=== PATIENT | male | born 1960 | race Caucasian/White ===

== ENCOUNTER 2020-05-01 22:09 | Emergency (ER) | payer BC | END 2020-05-01 23:00 | disposition home or self-care (01) | LOC: ERS 22:09 | DX: H53.9 Unspecified visual disturbance (principal); F32.9 Major depressive disorder, single episode, unspecified; I25.2 Old myocardial infarction; E78.5 Hyperlipidemia, unspecified; E78.00 Pure hypercholesterolemia, unspecified; E78.1 Pure hyperglyceridemia; Z79.82 Long term (current) use of aspirin; Z79.899 Other long term (current) drug therapy | CPT/HCPCS: 99283 ==

== ENCOUNTER 2020-10-22 10:19 | Inpatient (IN) | payer BC ==
[2020-10-22] MEDS ORDERED: CEFAZOLIN 1 GM VIAL ONE ×2 (10:37→11:47)
[2020-10-22] MEDS ORDERED: Boostrix 0.5 ML (Tdap) VIAL ONE (10:37)
--- NOTE | 2020-10-22 10:53 | RAD ---
EXAM: 3 views of the left hand COMPARISON: None HISTORY: Hand pain after crushing with a log splitter FINDINGS: 3 views of the hand shows no evidence of acute fracture or dislocation. No degenerative eyal nges are seen. There appears to be a laceration along the ulnar aspect of the hand. Adjacent soft tissue swelling is present. IMPRESSION: No evidence of acute osseous abnormality.
[2020-10-22] MEDS ORDERED: Bacitracin 1 PK ONE (12:01)
--- NOTE | 2020-10-22 12:04 | RAD ---
EXAM: Single view of the chest HISTORY: Chest pain COMPARISON: None FINDINGS: Single view of the chest shows a normal sized cardiomediastinal silhouette. Atheroscleroti c calcifications are seen in the aorta. There is no evidence of consolidation, mass, or pleural effusion. Degenerative changes are seen in the spine. IMPRESSION: No evidence of acute cardiopulmonary disease
[2020-10-22 12:18] LABS: #Basophils 0.1 thou/uL (0.0-0.2); #Eosinphils 0.4 thou/uL (0.0-0.7); #Lymphocytes 1.1 thou/uL (1.20-3.40); #Monocytes 0.5 thou/uL (0.11-0.59); %Basophils 1.3 % (0.0-1.0); %Eosinophils 5.9 % (0.0-10.0); %Lymphocytes 17.6 % (21.0-51.0); %Monocytes 8.5 % (0.0-10.0); %Neutrophils 66.7 % (42.0-75.0); Hemoglobin 15.3 g/dL (14.0-18.0); Mean Corpuscular HGB CONC 34.2 g/dL (32.0-36.0); Mean Corpuscular Volume 93.6 fL (78.0-98.0); Mean Platelet Volume 8.4 fL (7.4-10.4); Platelet Count 199 thou/uL (130-400); RBC Distribution Width 11.9 % (11.5-14.5); Red Blood Cell (RBC) Count 4.78 mill/uL (4.70-6.10)
[2020-10-22 12:44] LABS: ALT (SGPT) 27 U/L (8-55); AST (SGOT) 29 U/L (5-34); Albumin 4.1 g/dL (3.5-5.0); Alkaline Phosphatase 69 U/L (40-110); Anion Gap 13 mmol/L (10-20); BUN (Urea Nitrogen) 18 mg/dL (8.4-25.7); Bilirubin, Total 0.6 mg/dL (0.2-1.2); Calc. Creatinine Clearance 0 mL/min (70-130); Calcium 8.8 mg/dL (7.8-10.44); Carbon Dioxide 22 mmol/L (22-29); Chloride 108 mmol/L (98-107); Estimated GFR-MDRD 90; Globulin 2.7 g/dL (2.4-3.5); Glucose 143 mg/dL (70-105); Protein, Total 6.8 g/dL (6.0-8.3); Sodium 139 mmol/L (136-145)
[2020-10-22] MEDS ORDERED: Gentamicin 80 MG/2 ML VIAL ONE (12:52)
[2020-10-22] MEDS ORDERED: Acetaminophen 325 MG TAB ONE (14:51)
[2020-10-22 15:15] LABS: SARS-CoV-2 NAA Rapid Test Not Detected (NotDetected)
--- NOTE | 2020-10-22 17:06 | HP ---
REQUESTING PHYSICIAN: Rudy Fairchild MD ATTENDING SURGEON: Hunter Franco DO CONSULTATIONS: Hand Surgery, Negro Rosas MD. HISTORY OF PRESENT ILLNESS: The patient is a 60-year-old man who was working with a wood splitter when his hand got caught between the splitter and a piece of wood, causing a laceration to his left hypothenar eminence. He brought himself to the emergency department where he underwent evaluation and examination and was noted to have laceration to the thenar eminence with decreased sensation on the ulnar side of his small finger, at which time we were asked to evaluate the patient for admission and obtain a hand surgery consultation. The patient was given a tetanus update and IV antibiotics. The patient denies any other injuries. ALLERGIES: NONE. CURRENT MEDICATIONS: 1. Baby aspirin. 2. Ativan. 3. Famotidine. 4. Metoprolol. 5. Mirtazapine. 6. . PAST MEDICAL HISTORY: 1. Coronary artery disease. 2. Hypertension. 3. Hyperlipidemia. 4. Anxiety. 5. Depression. PAST SURGICAL HISTORY: 1. Cardiac stent placement. 2. Right foot surgery. 3. Anal sphincterotomy. SOCIAL HISTORY: The patient drinks occasionally during the week, denies daily alcohol. He denies tobacco or drug use. 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 REVIEW OF SYSTEMS: A 10-point review of systems is negative except as otherwise stated. PHYSICAL EXAMINATION: VITAL SIGNS: Blood pressure 131/74, heart rate 62, respirations 18, oxygen saturation 99% on room air, and temperature is 98.0. GENERAL: The patient is resting comfortably in bed. He is awake, alert, and oriented x3. Patricia Coma Scale is 15. HEENT: Head is normocephalic and atraumatic. Eyes, extraocular motion intact. PERRLA bilaterally. Ears are atraumatic without discharge. Nose is atraumatic without discharge. Oropharynx is clear. NECK: Nontender with trachea is midline. No JVD. CHEST: Clear to auscultation with good inspiratory and expiratory effort. HEART: Regular rate and rhythm. ABDOMEN: Soft, flat, nontender with active bowel sounds. PELVIS: Stable. EXTREMITIES: Neurovascularly intact x4 with the exception of some decreased sensation to his ulnar aspect of his left small finger. He does have a laceration on his thenar eminence, jagged in nature, approximately 3.5 cm on the palmar surface. LABORATORY FINDINGS: White blood cell count 6.0, hemoglobin 15.3, hematocrit 44.8, and platelets 199. Sodium 139, potassium 4.0, chloride 108, CO2 of 22, BUN 18, creatinine 0.87, and glucose 143. LFTs are unremarkable. COVID is negative. RADIOGRAPHIC REPORTS: AP chest x-ray shows no evidence of acute cardiopulmonary disease. Views of the left hand show no evidence of acute osseous abnormality. ASSESSMENT AND PLAN: 1. Status post crush injury to left nondominant hand. 2. Laceration to left hypothenar eminence with concern for nerve damage to left small finger. Plan will be to admit the patient to surgical floor. We will keep him n.p.o. until evaluated by Dr. Rosas who on initial contact plans on taking him to the operating room. The patient will have pulmonary toilet, gastritis, mechanical VTE prophylaxis. The evaluation, examination, laboratory, and radiographic findings were discussed with Dr. Franco prior to this dictation. Job ID: [id number]
[2020-10-22] MEDS ORDERED: CEFAZOLIN 2 GM in Premix Bag 1 BAG IVPB SCH (19:15)
[2020-10-22] MEDS ORDERED: Bupivacaine PF 0.5% 30 ML VIAL ONE (20:55)
[2020-10-22] MEDS ORDERED: Thrombin 5000 UNITS/5 ML VIAL ONE (20:55)
[2020-10-22] MEDS ORDERED: Sodium Chloride 0.9% 10 ML ONE (20:55)
[2020-10-22] MEDS ORDERED: Bacitracin Zinc Ointment 30 gm TUBE ONE (20:55)
[2020-10-22] MEDS ORDERED: Sodium Chloride 0.9% 20 ML ONE (21:10)
[2020-10-22] MEDS ORDERED: Fentanyl 100 MCG/2 ML VIAL ONE (21:23)
[2020-10-22] MEDS ORDERED: Lidocaine 1% PF 5 ML VIAL ONE (21:58)
[2020-10-22] MEDS ORDERED: PROPOFOL 200 MG/20 ML VIAL ONE (21:58)
[2020-10-22] MEDS ORDERED: Dexamethasone 20 MG/5 ML VIAL ONE (21:58)
[2020-10-22] MEDS ORDERED: Ondansetron PF 4 MG/2 ML Vial ONE (21:58)
[2020-10-22] MEDS ORDERED: Acetaminophen/Codeine 30-300mg Tablet PO PRN (22:10)
[2020-10-22] MEDS ORDERED: HYDROcodone/Acetaminophen 5/325 mg Tablet PO PRN (22:10)
[2020-10-22] MEDS ORDERED: traMADol HCl 50 MG TAB PO PRN (22:10)
[2020-10-22] MEDS ORDERED: TETANUS AND DIPHTHERIA TOX/PF 0.5 ML DISP.SYRIN IM SCH (22:15)
[2020-10-22] MEDS ORDERED: Pharmacy to Dose : VANC/ABX'S IVPB PRN (22:15)
[2020-10-22] MEDS ORDERED: Ketorolac Tromethamine 30 MG/ML VIAL IVP PRN (22:18)
[2020-10-22] MEDS ORDERED: Meperidine HCl/PF 25 MG/ML VIAL IM PRN (22:18)
[2020-10-22] MEDS ORDERED: Meperidine HCl/PF 25 MG/ML VIAL SLOW IVP PRN (22:22)
[2020-10-22] MEDS ORDERED: Ondansetron HCl/PF 4 MG/2 ML Vial IVP PRN (22:22)
[2020-10-22] MEDS ORDERED: Promethazine HCl 25 MG/ML VIAL IM PRN (22:22)
[2020-10-22] MEDS ORDERED: Promethazine HCl 25 MG/ML VIAL SLOW IVP PRN (22:22)
[2020-10-23] MEDS ORDERED: Fentanyl 100 MCG/2 ML VIAL ONE (00:04)
[2020-10-23] MEDS ORDERED: Promethazine HCl 25 MG/ML VIAL SLOW IVP PRN (00:09)
[2020-10-23] MEDS ORDERED: Ondansetron HCl/PF 4 MG/2 ML Vial IVP PRN (00:09)
[2020-10-23] MEDS ORDERED: Meperidine HCl/PF 25 MG/ML VIAL SLOW IVP PRN (00:09)
[2020-10-23] MEDS ORDERED: Promethazine HCl 25 MG/ML VIAL IM PRN (00:09)
[2020-10-23] MEDS ORDERED: Dextrose 50% Abboject 50 ML SYRINGE SLOW IVP PRN (00:16)
[2020-10-23] MEDS ORDERED: Sodium Chloride 0.9% 1,000 ML IV SCH (00:16)
[2020-10-23] MEDS ORDERED: Cyclobenzaprine 10 MG TAB PO PRN (00:16)
[2020-10-23] MEDS ORDERED: Morphine 2 MG/ML VIAL SLOW IVP PRN (00:16)
[2020-10-23] MEDS ORDERED: traMADol HCl 50 MG TAB PO PRN ×2 (00:16)
[2020-10-23] MEDS ORDERED: Ondansetron ODT 4 MG TAB PO PRN (00:16)
[2020-10-23] MEDS ORDERED: Ondansetron PF 4 MG/2 ML Vial IVP PRN (00:16)
[2020-10-23] MEDS ORDERED: Ibuprofen 800 MG TAB PO PRN (00:16)
[2020-10-23] MEDS ORDERED: Dextrose 5% in Water 1,000 ML IV PRN (00:16)
[2020-10-23 01:25] VITALS: BMI 28.7
[2020-10-23] MEDS: Acetaminophen 500 MG TAB PO SCH ×3 (01:48→11:46)
--- NOTE | 2020-10-23 07:19 | OP ---
DATE OF PROCEDURE: 10/22/2020 PREOPERATIVE DIAGNOSES: 1. Left small finger palmar and direct ulnar 5 cm laceration with abductor digiti minimi and flexor digiti minimi laceration, mild contamination. 2. Superficial ulnar nerve branch laceration deep in wound. 3. Ulnar and radial digital nerve intact clinically and by neuroplasty. The flexor tendon sheath and tendon are intact by exam and by inspection. PROCEDURES PERFORMED: 1. Debridement of wound. 2. Closure wound 5 cm. 3. Repair of the abductor digiti minimi and flexor brevis. 4. Superficial ulnar nerve microscopic neuroplasty and repair. 5. Microscopic digital nerve ulnar aspect neuroplasty. SPECIMENS REMOVED: None, except for small amount of contamination. ESTIMATED BLOOD LOSS: 10 mL. TOURNIQUET TIME: 55 minutes. DESCRIPTION OF PROCEDURE: After successful general endotracheal anesthesia, the limb was prepped and draped. Patient then had the time-out done appropriately. The wound was evaluated and we exsanguinated the limb to 250 mmHg pressure. He received 50 mL of 0.5% Marcaine without epinephrine now at this point of procedure, before incision and 5 after the wound was closed. We exsanguinated the limb, inflated tourniquet to 250 mmHg pressure, and performed a Elsie zigzag incision ulnar, distal, and radial proximal. We dissected this until we found under the microscope the digital nerve on the ulnar side that required further dissection to see the digital nerve on the radial side. We then visualized that the digital nerve under microscope was intact and had no evidence of fraying or either articular damage around it. At this point, we saw small contamination deep in the wound and saw that the muscles around the tendon had been lacerated without damage to the flexor digitorum superficialis profundus or the sheath and action was indicated. We then debrided using a tenotomy scissor and Adson as well as irrigation of the entire wound from palmar to dorsal and from ulnar to radial until we had bleeding tissue and no evidence of anesthetic or operative complication. We then finished the debridement and irrigation with irrigation itself and prepared to make a repair based on the visualization of the microscope that both digital nerves were intact. Patient then had the #2 Eth[place] brought onto the field and we repaired the muscular tendon junction of the flexor brevis and abductor brevis. We were able to confirm via the microscope the intact digital nerve, small finger and released the ring finger side of the ring finger. There was no evidence, however, migration of the dorsal structures to include superficial ulnar nerve terminal branches. The patient then had the digital nerve neuroplasty completed and the superficial ulnar nerve repaired. because of tension and then once we finished the suture and exploration of the nerves again, it was determined that it was time to close the wounds. This was done and the patient was prepared for discharge. Job ID: [id number]
[2020-10-23] MEDS ORDERED: Vancomycin HCl 1.25 GM in Sodium Chloride 0.9% 250 ML 250 ML IVPB SCH (09:00)
[2020-10-23] MEDS ORDERED: Aspirin 81 mg Enteric Coated Tablet PO SCH (09:00)
[2020-10-23] MEDS ORDERED: Vancomycin 1 GM in Premix Bag 1 BAG IVPB SCH (09:00)
[2020-10-23 11:20] VITALS: BP 119/76; TEMP 97.9
--- NOTE | 2020-10-24 03:28 | DIS ---
DATE OF ADMISSION: 10/23/2020 DATE OF DISCHARGE: 10/23/2020 ADMISSION DIAGNOSES: 1. Status post crush injury by wood splitter to left nondominant hand. 2. Laceration to the left hypothenar eminence with concern for nerve damage to left small finger. 3. Acute pain secondary to above. CONSULTATIONS: Hand Surgery, Dr. Rosas. PROCEDURES: 1. Debridement of wound. 2. Closure of 5 cm wound. 3. Repair of the abductor digiti minimi and flexor brevis. 4. Superficial ulnar nerve microscopic neuroplasty and repair. 5. Microscopic digital nerve ulnar aspect neuroplasty. SUMMARY: The patient is a 60-year-old man who was working with a wood splitter when his hand got caught between the machine and a piece of wood resulting in his above injuries. He was brought to the emergency department by probably own vehicle, where he underwent evaluation and examination and was noted to have some decreased sensation and concern for nerve injury, at which time Dr. Rosas was consulted and he recommended admission and surgical exploration of the wound. The patient was admitted and was taken to the operating room to undergo his above procedures which he tolerated well. The following morning, he was tolerating a diet. His pain was controlled. He was ambulating without difficulty, and he was able to be discharged home. He will follow up with Dr. Rosas in 10 days. DISCHARGE MEDICATIONS: He was discharged home on: 1. Keflex 500 mg p.o. t.i.d. x5 days. 2. Neurontin 300 mg p.o. at night. 3. Tylenol with Codeine 1 to 2 tabs q.6 hours p.r.n. for pain, dispensed #30. At time of discharge, Patricia Coma Scale was 15. Job ID: [id number]
[2020-10-24] MEDS ORDERED: Famotidine 20 MG TAB PO SCH (09:00)
== END 2020-10-23 14:00 | disposition home or self-care (01) | DRG 41 ==
LOC: ERS 10:19 → SURG A 10-23 00:16
PROVIDERS: ADMIT Surgery; ATTEND Surgery
PROC: 01Q40ZZ Repair Ulnar Nerve, Open Approach (ICD-10-PCS; principal; 2020-10-23)
PROC: 0KQD0ZZ Repair Left Hand Muscle, Open Approach (ICD-10-PCS; 2020-10-23)
DX: S64.02XA Injury of ulnar nerve at wrist and hand level of left arm, initial encounter (principal); S56.128A Laceration of flexor muscle, fascia and tendon of left little finger at forearm level, initial encounter; S64.22XA Injury of radial nerve at wrist and hand level of left arm, initial encounter; Z20.828 Contact with and (suspected) exposure to other viral communicable diseases; F32.9 Major depressive disorder, single episode, unspecified; I25.10 Atherosclerotic heart disease of native coronary artery without angina pectoris; I10 Essential (primary) hypertension; E78.5 Hyperlipidemia, unspecified; F41.9 Anxiety disorder, unspecified; S61.412A Laceration without foreign body of left hand, initial encounter; Z87.891 Personal history of nicotine dependence; Z79.899 Other long term (current) drug therapy; W31.89XA Contact with other specified machinery, initial encounter
CPT/HCPCS: 29125; 36415; 71045; 80053; 85025; 90471; 90715; 93005; 96365; 96366; 96367; J0690; J1100; J1580; J2405; J2704; J3010; J3370; J3490; J7050; S0020; U0002

== ENCOUNTER 2022-10-30 11:53 | Outpatient (CLI) | payer BC | END 2022-10-30 11:54 | disposition home or self-care (01) | LOC: TBSIIMAG 11:53 | PROVIDERS: ATTEND Family Medicine | DX: M48.02 Spinal stenosis, cervical region (principal); M50.11 Cervical disc disorder with radiculopathy, high cervical region; G99.2 Myelopathy in diseases classified elsewhere; M50.122 Cervical disc disorder at C5-C6 level with radiculopathy; M50.123 Cervical disc disorder at C6-C7 level with radiculopathy; M47.893 Other spondylosis, cervicothoracic region; M47.892 Other spondylosis, cervical region | CPT/HCPCS: 72141 ==

== ENCOUNTER 2023-02-23 12:53 | Outpatient (CLI) | payer BC ==
[2023-02-23 13:43] LABS: Hemoglobin 14.2 g/dL (13.5-17.5); Mean Corpuscular HGB CONC 33.4 g/dL (32.0-36.0); Mean Corpuscular Hemoglobin 30.5 pg (27.0-33.0); Mean Corpuscular Volume 91.4 fl (81.2-95.1); Mean Platelet Volume 10.1 fl (7.4-10.4); Platelet Count 251 10x3/uL (150-450); RBC Distribution Width 12.9 % (11.5-14.5); Red Blood Cell (RBC) Count 4.65 10x6/uL (4.32-5.72); White Blood Cell (WBC) Count 5.3 10x3/uL (3.5-10.5)
[2023-02-23 13:53] LABS: Anion Gap 15 mmol/L (10-20); BUN (Urea Nitrogen) 12 mg/dL (8.4-25.7); Calc. Creatinine Clearance 0 mL/min (70-130); Calcium 9.5 mg/dL (7.8-10.44); Carbon Dioxide 24 mmol/L (23-31); Chloride 107 mmol/L (98-107); Estimated GFR 98; Glucose 103 mg/dL (80-115); Potassium 4.5 mmol/L (3.5-5.1); Sodium 141 mmol/L (136-145)
== END 2023-02-23 12:54 | disposition home or self-care (01) ==
LOC: LABBT 12:53
PROVIDERS: ATTEND Neurological Surgery
DX: Z01.818 Encounter for other preprocedural examination (principal); M54.12 Radiculopathy, cervical region
CPT/HCPCS: 80048; 85027; 93005; 93010

== ENCOUNTER 2023-02-26 05:47 | Day surgery (SDC) | payer BC ==
[2023-02-25 09:15] VITALS: BMI 29.7
[2023-02-26] MEDS ORDERED: Thrombin 5000 UNITS/5 ML VIAL ONE (06:24)
[2023-02-26] MEDS ORDERED: Midazolam HCl 2 mg/2 ml Vial ONE (06:29)
[2023-02-26] MEDS ORDERED: HYDROmorphone 0.5 MG/0.5 ML SYRINGE ONE (06:29)
[2023-02-26] MEDS ORDERED: fentaNYL PF 100 MCG/2 ML SYRINGE ONE (06:29)
[2023-02-26] MEDS ORDERED: CEFAZOLIN 2 GM VIAL ONE ×2 (06:45→11:01)
[2023-02-26] MEDS ORDERED: Sodium Chloride 0.9% 100 ML ONE ×2 (06:45→11:01)
[2023-02-26] MEDS ORDERED: Ondansetron PF 4 MG/2 ML Vial ONE (07:10)
[2023-02-26] MEDS ORDERED: PROPOFOL 200 MG/20 ML VIAL ONE (07:10)
[2023-02-26] MEDS ORDERED: Rocuronium Bromide 10 MG/ML (10ML VIAL) ONE (07:10)
[2023-02-26] MEDS ORDERED: Lidocaine 1% PF 5 ML VIAL ONE (07:10)
[2023-02-26] MEDS ORDERED: Dexamethasone 20 MG/5 ML VIAL ONE (07:10)
[2023-02-26] MEDS ORDERED: SUGAMMADEX SODIUM 200 MG/2 ML VIAL ONE (07:34)
[2023-02-26] MEDS ORDERED: Tamsulosin HCl 0.4 MG CAP ONE (08:41)
[2023-02-26] MEDS ORDERED: Cyclobenzaprine 10 MG TAB ONE (09:00)
[2023-02-26] MEDS ORDERED: HYDROcodone/Acetaminophen 5/325 mg Tablet ONE (11:28)
== END 2023-02-26 10:34 | disposition home or self-care (01) ==
LOC: SDC 05:47
PROVIDERS: ATTEND Neurological Surgery
PROC: 0RG10A0 Fusion of Cervical Vertebral Joint with Interbody Fusion Device, Anterior Approach, Anterior Column, Open Approach (ICD-10-PCS; principal; 2023-02-26)
DX: M54.12 Radiculopathy, cervical region (principal); M25.78 Osteophyte, vertebrae; I25.10 Atherosclerotic heart disease of native coronary artery without angina pectoris; E78.5 Hyperlipidemia, unspecified; K21.9 Gastro-esophageal reflux disease without esophagitis; Z95.5 Presence of coronary angioplasty implant and graft; Z91.018 Allergy to other foods; Z79.82 Long term (current) use of aspirin; Z79.899 Other long term (current) drug therapy; Z87.891 Personal history of nicotine dependence
CPT/HCPCS: C1713; C1889; J1170; J2250; J3490